=== PATIENT | female | born 1940 | race Caucasian/White ===

== ENCOUNTER → 2018-04-07 17:56 | Outpatient (CLI) | payer MEDICARE, MEDICAID, SELFPAY ==
[2018-04-07 20:13] LABS: Anion Gap 15.1 mEq/L (5-15); Blood Urea Nitrogen 13 mg/dL (7-18); Calcium 8.8 mg/dL (8.5-10.1); Carbon Dioxide 28 mmol/L (21.0-32.0); Chloride 99 mmol/L (98-107); Creatinine,Serum 0.79 mg/dL (0.55-1.02); Estimated Glomerular Filt Rate 71 ml/min (>60); GFR (African American) 86 ML/MIN (>60); Glucose 131 mg/dL (74-106); Potassium 4.1 mmoL/L (3.5-5.1); Sodium 138 mmol/L (136-145)
== END ==
PROVIDERS: Visit Provider Physician Assistant
DX: I63.9 Cerebral infarction, unspecified (principal)
CPT/HCPCS: 80048

== ENCOUNTER → 2018-10-11 10:15 | Outpatient (CLI) | payer MEDICARE, MEDICAID, SELFPAY ==
--- NOTE | 2018-10-11 10:22 | XR_ITS ---
XR chest 2V HISTORY: ITS.REASON: cough ORDERING PHYSICIAN: TASNEEM Acevedo PATIENT AGE: 78 years COMPARISON: None FINDINGS: The cardiomediastinal silhouette and pulmonary vascularity are within normal limits. The lungs are clear without infiltrates, suspicious nodules, or pleural effusions. There are mitral valve annular calcifications noted. No acute bony abnormalities. IMPRESSION: No acute finding Calcifications of the mitral valve annulus
== END ==
PROVIDERS: PCP Emergency Medicine; Visit Provider Physician Assistant
DX: R05 Cough (principal)
CPT/HCPCS: 71046

== ENCOUNTER → 2019-12-06 19:14 | Outpatient (CLI) | payer MEDICARE, MEDICAID, SELFPAY ==
[2019-12-06 19:30] LABS: Basophils # 0.1 K/mm3 (0-0.2); Basophils % 0.9 % (0.1-2.0); Eosinophils # 0.3 K/mm3 (0.0-0.4); Eosinophils % 4.9 % (0.1-12.0); Hemoglobin 13.8 g/dL (12.2-16.2); Lymphocytes # 1.9 K/mm3 (0.7-4.5); Mean Corpuscular HGB Conc 33.6 g/dL (31.8-35.4); Mean Corpuscular Hemoglobin 32.2 pg (27.0-31.2); Mean Corpuscular Volume 95.9 fl (81-99); Mean Platelet Volume 8.3 fl (7.4-10.4); Monocytes # 0.5 K/mm3 (0.1-1.0); Monocytes % 7.7 % (1.7-9.3); Neutrophils # 3.2 K/mm3 (1.8-7.8); Neutrophils % 54.4 % (37.0-80.0); Platelet Count 267 K/mm3 (142-424); Red Blood Count 4.28 M/mm3 (4.20-5.40); Red Cell Distribution Width 13.6 % (11.5-17.5); White Blood Count 5.9 K/mm3 (4.8-10.8)
[2019-12-06 20:01] LABS: Alanine Aminotransferase 11 U/L (12-78); Albumin Level 3.9 g/dl (3.5-5.0); Albumin/Globulin Ratio 1.5 (1.1-1.8); Alkaline Phosphatase 71 U/L (38-126); Anion Gap 13.8 mEq/L (5-15); Aspartate Amino Transferase 21 U/L (14-36); Bilirubin,Total 0.2 mg/dl (0.2-1.3); Blood Urea Nitrogen 12 mg/dl (7-17); Calcium 9.4 mg/dl (8.4-10.2); Carbon Dioxide 26 mmol/L (22.0-30.0); Chloride 100 mmol/L (98-107); Chol/HDL Ratio 4.5 (1-3.5); Cholesterol 172 mg/dl (140-200); Estimated Glomerular Filt Rate 97 ml/min (>60); GFR (African American) 117 ML/MIN (>60); Globulin 2.6 g/dL (1.3-3.2); Glucose 102 mg/dl (74-100); HDL Cholesterol 38 mg/dl (40-60); Potassium 3.8 mmoL/L (3.5-5.1); Sodium 136 mmol/L (136-145); Total Protein,Serum 6.5 g/dl (6.3-8.2); Triglycerides 227 mg/dl (30-150); VLDL Cholesterol 45 mg/dL (0-40)
[2019-12-06 20:11] LABS: Direct LDL Cholesterol 94.63 mg/dL (100-129)
[2019-12-06 20:16] LABS: T4 (Thyroxine) 8.9 ug/dl (5.53-11.0)
[2019-12-08 11:34] LABS: Hemoglobin A1C 5.9 % (4.0-6.0)
== END ==
PROVIDERS: Visit Provider Nurse Practitioner Family
DX: I10 Essential (primary) hypertension (principal); S78.112A Complete traumatic amputation at level between left hip and knee, initial encounter; Z79.899 Other long term (current) drug therapy
CPT/HCPCS: 80053; 80061; 83036; 84436; 84443; 85025

== ENCOUNTER → 2020-01-02 07:52 | Outpatient (CLI) | payer MEDICARE, MEDICAID, SELFPAY ==
--- NOTE | 2020-01-02 07:57 | CA_ITS ---
APPROVED REPORT EXAM: Comprehensive 2D, Doppler, and color-flow Echocardiogram Soap Inspector: Susan Aburto CRT Ht: 5 ft 4 in Wt: 125lbs BSA: 1.60 BP: 129/55 mmHg Indications: COPD, Hyperlipidemia, Hypertension/HDD, PAD, ATK Amputee, smoker 2D Dimensions LVOT 1.93 cm (M/F) 1.5-2.5 M-Mode Dimensions RVDd 2.35 cm (0.9-2.6) LVDd 4.10 cm (3.5-5.7) LVDs 2.07 cm (3.5-5.7) IVSd 1.25 cm (0.6-1.1) PWd 0.34 cm (0.6-1.1) EF (Teich) 81.30% FS 49.50% EDV (Teich) 74.20 mL ESV (Teich) 13.90 mL LV Diastology E/A Ratio 0.62 Mitral Valve MV A Velocity 340.00 (40-130 cm/s) MV Mean Gr. 5.40 (<2mmHg) MV PHT 103.00 ms Left Ventricle Left atrium is mildly enlarged, left ventricle is normal size, mild concentric left ventricular hypertrophy, visually estimated ejection fraction 55% with no regional wall motion abnormality, grade 1 diastolic dysfunction seen with tissue Doppler evidence of raise left atrial pressure. Right Ventricle Right atrium and right ventricular normal size and contractility. Aortic Valve Aortic valve is minimally thickened and fibrosed, there is no aortic stenosis or aortic insufficiency. Mitral Valve Mitral valve has dense mitral annular calcification, which extends into posterior mitral leaflet and chordal structure. The mean gradient across mitral valve is 5 mmHg, valve area is 2.1 cm??? by pressure half-time represents mild mitral stenosis, there is mild mitral regurgitation. Tricuspid Valve Tricuspid valve is grossly normal, there is mild tricuspid regurgitation, tricuspid regurgitation jet velocity is inadequate for calculation of the right ventricular systolic pressure. Pulmonic Valve Pulmonic valve is poorly visualized. Great Vessels Aortic root is normal size. Pericardium No significant pericardial effusion noted. Conclusion 1. Mildly enlarged left atrium, normal left ventricular size, mild concentric left ventricular hypertrophy, visually estimated ejection fraction 55% with no regional wall motion abnormality, grade 1 diastolic dysfunction seen with tissue Doppler evidence of raise left atrial pressure. 2. Thickened and calcified aortic valve without aortic stenosis or aortic insufficiency. 3. Dense mitral annular calcification involving the posterior mitral leaflet also, the mean gradient across valve is 5 mmHg, valve area of 2.1 cm??? represents mild mitral stenosis, there is mild mitral regurgitation. 4. Mild tricuspid regurgitation. 5. No significant pericardial effusion noted. Electronically signed by : Sam Craig, 01/02/2020 20:55:37
--- NOTE | 2020-01-02 08:51 | CT_ITS ---
PROCEDURE: CT CHEST WO CON CLINICAL INDICATION: dyspnea SOA SMOKER COMPARISON: No exams were available for comparison TECHNIQUE: Axial images obtained with sagittal and coronal reformats. All CT scans at the facility use one or more dose reduction, viz: automated exposure control, ma/kV adjustment per patient size (including targeted exams where dose is matched to indication, i.e. head), or iterative reconstruction technique. FINDINGS: HEART AND MEDIASTINAL STRUCTURES: There are coronary artery calcifications present. There is calcification of the mitral valve annulus. No mediastinal or hilar mass or dominant adenopathy. There is a 17 x 9 mm hypodense nodule of the left thyroid gland with some peripheral calcification. There are few small mediastinal lymph nodes some of which contain calcium. There is a small hiatal hernia with mild nonspecific thickening of the distal esophagus. LUNGS AND PLEURAL SPACES: Biapical scarring is present. There are changes of COPD. There is evidence of old granulomatous disease. Minimal atelectatic or fibrotic changes are present in the right lower lobe. No effusions or infiltrates. No suspicious pulmonary nodules identified. BONY STRUCTURES: No acute bony findings. There are mild degenerative changes of the thoracic spine UPPER ABDOMEN: There is some minimal increased soft tissue density anterior to the lower pole of the left kidney nonspecific and incompletely imaged. Adrenal glands are somewhat enlarged maintaining an adrenal form shape nonspecific. ADDITIONAL FINDINGS: No other significant abnormalities. IMPRESSION: COPD with old granulomatous disease and scattered areas of scarring. Coronary artery calcification and mitral valve annular calcification. 17 x 9 mm left thyroid nodule. Ultrasound may provide further evaluation. Other nonspecific findings as described above Dictated by: Costa Singh MD 01/03/2020 10:19 Costa Singh MD in [place] 01/03/2020 10:19
--- NOTE | 2020-11-05 13:05 | SW/DCPLANNER ---
Addendum entered by [facility] 11/07/20 14:28: Lori with [facility] contacted this patient regarding Medicaid pending. Patient stated that she can not admit to a facility under Medicaid pending at this time. I will relay information back to Rad Anderson at Dr Jesus office. Lori with [facility] has been working with this patient. Addendum entered by [facility] 11/07/20 10:01: [facility] has denied this referral. Patient information has now been faxed to [facility] and [place]. Addendum entered by [facility] 11/06/20 14:12: Frantz with [facility] is currently reviewing patient information. Original Note: I received a phone call from Rad Anderson regarding placement for this patient. Patient is a right AKA and left AKA. Patient was previously at [facility] and lies at home alone. Patient receives home health services as well. Patient is interested in placement. I called and spoke with this patient and she is interested in placement at [facility]. I explained to patient that she may have to admit to facility under her Medicaid benefit. Patient expressed that she is only interested in placement under her [place] Medicare. I attempted to contact Frantz in Admissions at [facility] with no answer at this time. Frantz is out for the day: I will follow up with Frantz, patient and Rad Anderson tomorrow morning.
== END ==
PROVIDERS: PCP Physician Assistant; Visit Provider Urology
DX: R06.00 Dyspnea, unspecified (principal); I10 Essential (primary) hypertension; Z72.0 Tobacco use
CPT/HCPCS: 71250; 93306

== ENCOUNTER → 2021-12-04 16:04 | Outpatient (CLI) | payer MEDICARE, MEDICAID, SELFPAY ==
--- NOTE | 2021-12-04 16:09 | XR_ITS ---
FINAL REPORT CLINICAL HISTORY: pneumonia FINDINGS: PA and lateral views of the chest are obtained. There is no prior exam for comparison. The cardiac and mediastinal silhouettes are within normal limits. There is patchy right lung opacity, slightly rounded in the right upper lobe. Note is made of emphysema. Small pleural effusions are identified. There is no pneumothorax or acute osseous abnormality. IMPRESSION: Right lung opacity and small pleural effusions, likely represent pneumonia. Recommend continued follow-up to resolution. Reviewed, Interpreted and Dictated by Gissell Dumont MD Transcribed by Teresa Billings Authenticated and [facility]
== END ==
PROVIDERS: PCP Physician Assistant; Visit Provider Physician Assistant
DX: J18.9 Pneumonia, unspecified organism (principal)
CPT/HCPCS: 71046

== ENCOUNTER → 2022-07-30 16:27 | Outpatient (CLI) | payer MEDICARE, MEDICAID, SELFPAY ==
[2022-07-30 14:47] LABS: Basophils % 0.1 % (0.1-2.0); Eosinophils % 0.4 % (0.1-12.0); Lymphocytes # 1.4 K/mm3 (0.7-4.5); Lymphocytes % 12.1 % (10-50); Mean Corpuscular HGB Conc 32.4 g/dL (31.8-35.4); Mean Corpuscular Hemoglobin 30.3 pg (27.0-31.2); Mean Corpuscular Volume 93.7 fl (81-99); Monocytes # 0.7 K/mm3 (0.1-1.0); Monocytes % 6.5 % (1.7-9.3); Neutrophils # 9.2 K/mm3 (1.8-7.8); Neutrophils % 80.9 % (37.0-80.0); Platelet Count 333 K/mm3 (142-424); Red Blood Count 4.27 M/mm3 (4.20-5.40); Red Cell Distribution Width 15.3 % (11.5-17.5); White Blood Count 11.3 K/mm3 (4.8-10.8)
[2022-07-30 15:11] LABS: Alanine Aminotransferase 16 U/L (12-78); Albumin Level 3.9 g/dl (3.5-5.0); Albumin/Globulin Ratio 1.6 (1.1-1.8); Alkaline Phosphatase 76 U/L (38-126); Anion Gap 15.9 mEq/L (5-15); Aspartate Amino Transferase 21 U/L (14-36); Bilirubin,Total 0.2 mg/dl (0.2-1.3); Blood Urea Nitrogen 15 mg/dl (7-17); Calcium 8.8 mg/dl (8.4-10.2); Carbon Dioxide 23 mmol/L (22.0-30.0); Chloride 102 mmol/L (98-107); Chol/HDL Ratio 3.5 (1-3.5); Cholesterol 166 mg/dl (140-200); Estimated Glomerular Filt Rate 96 ml/min (>60); GFR (African American) 117 ML/MIN (>60); Globulin 2.4 g/dL (1.3-3.2); Glucose 97 mg/dl (74-100); HDL Cholesterol 47 mg/dl (40-60); Potassium 4.9 mmoL/L (3.5-5.1); Sodium 136 mmol/L (136-145); Total Protein,Serum 6.3 g/dl (6.3-8.2); Triglycerides 175 mg/dl (30-150); VLDL Cholesterol 35 mg/dL (0-40)
[2022-07-30 15:22] LABS: Direct LDL Cholesterol 93.91 mg/dL (100-129)
[2022-07-30 15:41] LABS: Thyroid Stimulating Hormone 0.33 uIU/mL (0.465-4.68)
[2022-07-30 16:11] LABS: Hemoglobin A1C 5.7 % (4.0-6.0)
== END ==
PROVIDERS: PCP Physician Assistant; Visit Provider Physician Assistant
DX: E78.5 Hyperlipidemia, unspecified (principal); I63.9 Cerebral infarction, unspecified; J44.9 Chronic obstructive pulmonary disease, unspecified; E11.9 Type 2 diabetes mellitus without complications; Z79.899 Other long term (current) drug therapy
CPT/HCPCS: 80053; 80061; 83036; 84443; 85025

== ENCOUNTER 2023-06-15 12:32 | Outpatient (CLI) | payer MEDICARE, MEDICAID, SELFPAY ==
[2023-06-15 12:35] LABS: Coronavirus 19, PCR Not Detected (NotDetected); Influenza A, PCR Not Detected (NotDetected); Influenza B, PCR Not Detected (NotDetected)
== END 2023-06-15 23:59 ==
PROVIDERS: PCP Physician Assistant; Visit Provider Physician Assistant
DX: J11.1 Influenza due to unidentified influenza virus with other respiratory manifestations (principal)
CPT/HCPCS: 87636